=== PATIENT | male | born 1925 | race Caucasian/White ===

== ENCOUNTER 2016-04-28 11:27 | Emergency (ER) | payer OTHER ==
[~2016-04-28] VITALS: Ht 177.8 cm; Wt 88.5 kg
--- NOTE | ~2016-04-28 | EKG ---
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
[~2016-04-28 11:27] MED LIST: ACCUPRIL; ACCUPRIL PO; ADULT LOW DOSE81 MG PO; CENTRUM SILVER1 EAC1 PO; CLONAZEPAM PO; FLOMAX PO; FUROSEMIDE 40 M40 M1 PO; GABAPENTIN100 MG PO; HYDROCHLOROTHIA25 M1 PO; KLOR-CON 1010 MEQ PO; NIASPAN ER 101000 M1 PO; PRAVASTATIN SOD20 MG PO; TEKTURNA300 MG PO; VITAMIN D1000 UNI1 PO
[2016-04-28 12:04] LABS: BASOPHILS 1.5 % (0.0-2.0); EOSINOPHILS 5.4 % (0.0-3.0); HEMATOCRIT 42.5 % (42.0-52.0); LYMPHOCYTES 17.8 % (24.0-44.0); MCH 29.3 pg (26.0-34.0); MONOCYTES 11.2 % (1.0-8.0); PLATELET COUNT 172 thou/uL (150-400); POLYS 64.1 % (36.0-66.0); RBC 4.77 mil/uL (4.50-6.00); RDW 15.7 % (10.5-14.5); WBC 9.3 thou/uL (4.0-11.0)
[2016-04-28 12:06] LABS: MANUAL DIFF NO
[2016-04-28 12:09] LABS: ANION GAP 5 mmol/L (7-16); BUN 27 mg/dL (7-18); CALCIUM 8.9 mg/dL (8.5-10.1); CHLORIDE 110 mmol/L (98-107); CO2 30 mmol/L (21-32); CREATININE 1.5 mg/dL (0.6-1.3); GLUCOSE 97 mg/dL (70-99); POTASSIUM 3.9 mmol/L (3.5-5.1); SODIUM 145 mmol/L (136-145)
[2016-04-28 12:18] LABS: TROPONIN-I < 0.04 ng/mL (<0.04-0.07)
[2016-04-28 13:18] LABS: URINE BILIRUBIN NEGATIVE (Negative); URINE BLOOD NEGATIVE (Negative); URINE COLOR YELLOW; URINE GLUCOSE-RANDOM* NEGATIVE (Negative); URINE KETONES NEGATIVE (Negative); URINE LEUKOCYTES-REFLEX NEGATIVE (Negative); URINE PROTEIN (DIPSTICK) 2+ (Negative); URINE SPECIFIC GRAVITY 1.025 (1.003-1.035); URINE UROBILINOGEN 0.2 E.U./dl (0.2-1.0)
[2016-04-28 13:43] LABS: FINE GRANULAR CASTS 0-3 Few /LPF (None Seen); HYALINE CASTS 0-3 Few /LPF (None Seen); SQUAMOUS 0-3 Few /LPF (0-3); URINE WBC-REFLEX 6-15 Few /HPF (0-5)
[2016-04-28 13:44] LABS: CRYSTALS None Seen /LPF (None Seen); URINE RBC None Seen /HPF (0-2)
[2016-04-28] MEDS ORDERED: KEFLEX500 MG PO (14:00)
[2016-04-28 14:02] VITALS: BP 141/76
== END 2016-04-28 14:03 | disposition home or self-care (01) ==
LOC: ER 11:27
PROVIDERS: Physician Assistant
DX: N39.0 Urinary tract infection, site not specified (principal); E86.0 Dehydration; I10 Essential (primary) hypertension; N17.9 Acute kidney failure, unspecified; Z87.891 Personal history of nicotine dependence; F10.99 Alcohol use, unspecified with unspecified alcohol-induced disorder

== ENCOUNTER → 2016-05-14 | Outpatient (CLI) | payer OTHER ==
[~2016-05-14] MED LIST changes: +KEFLEX500 MG PO
== END ==
LOC: MRI 10:06
DX: M47.812 Spondylosis without myelopathy or radiculopathy, cervical region (principal); M48.02 Spinal stenosis, cervical region; M54.2 Cervicalgia; M47.892 Other spondylosis, cervical region